=== PATIENT | female | born 1990 | race Caucasian/White ===

== ENCOUNTER 2017-09-21 03:50 | Emergency (ER) | payer OTHER ==
[2017-09-21] MEDS ORDERED: SODIUM CHLORIDE 0.9% 1000 ML INFUS.BAG IV ONE (03:58)
[2017-09-21 04:10] VITALS: BP 142/84; PULSE 95; TEMP 99.1; BMI 36.8
[2017-09-21 04:28] LABS: BASOPHIL 0.6 % (0-2.0); EOSINOPHIL 1.9 % (0-4.5); MCH 29.4 pg (25.7-33.7); MEAN CELL VOLUME 86.5 fl (80-96); MEAN PLT VOLUME 9.9 fl (7.5-11.1); NEUTROPHILS 77.8 % (42.8-82.8); PLATELET COUNT 269 K/MM3 (134-434); RDW 14.7 % (11.6-15.6); WHITE BLOOD COUNT 7.8 K/mm3 (4.0-10.0)
--- NOTE | 2017-09-21 04:40 | PDOC ---
History of Present Illness - General Stated Complaint: NAUSEAU/VOMITING Time Seen by Provider: 09/21/17 03:56 - History of Present Illness Initial Comments: 09/21/17 04:37 Patient is a 27 y.o. female with a PMH of childhood seizures (last seizure @ age 12 - previously Lamotrigine) who presents with acute onset of sharp, cramping 10/10 epigastric abdominal pain that radiates into her back with associated clear colored non-bloody emesis and 3 epsiodes of watery non-bloody diarrhea. Patient denies any subjective fevers, chills, chest pain or shortness of breath. Patient states her last PO intake was [employer] leftovers of pasta with chicken and her last menstrual period was in early August. NKDA Surgical: Cholecystectomy, C-S, Tubal Ligation Social: denies cigarettes, 1-2 alcoholic drinks monthly, denies recreational drugs PMD: None Past History - Past Medical History Allergies/Adverse Reactions: Allergies Allergy/AdvReac Type Severity Reaction Status Date / Time No Known Allergies Allergy Verified 09/21/17 04:09 Home Medications: Ambulatory Orders NK [No Known Home Medication] 09/21/17 - Suicide/Smoking/Psychosocial Hx Smoking History: Never smoked Have you smoked in the past 12 months: No Information on smoking cessation initiated: No Hx Alcohol Use: No Drug/Substance Use Hx: No Review of Systems - Review of Systems Constitutional: No: Chills, Fever Respiratory: No: Shortness of Breath Cardiac (ROS): No: Chest Pain ABD/GI: Yes: Diarrhea, Nausea, Vomiting, Abdominal cramping : No: Burning, Dysuria All Other Systems: Reviewed and Negative *Physical Exam - Vital Signs Last Vital Signs Temp Pulse Resp BP Pulse Ox 99.1 F 95 H 19 142/84 99 09/21/17 04:05 09/21/17 04:05 09/21/17 04:05 09/21/17 04:05 09/21/17 04:05 - Physical Exam General Appearance: Yes: Nourished, Obese Respiratory/Chest: positive: Lungs Clear Cardiovascular: positive: S1, S2 Gastrointestinal/Abdominal: positive: Normal Bowel Sounds, Tender (Epigastric tenderness), Soft. negative: Distended, Guarding, Rebound, Hernia, Mass Musculoskeletal: positive: CVA Tenderness (L), Vertebral Tenderness (Lumbar Sacral Tenderness) Integumentary: positive: Normal Color, Dry, Warm Neurologic: positive: Fully Oriented, Alert ED Treatment Course - LABORATORY CBC & Chemistry Diagram: 09/21/17 04:20 09/21/17 04:20 - ADDITIONAL ORDERS Additional order review: Laboratory Results 09/21/17 04:20 Urine HCG, Qual Negative 09/21/17 04:20 RBC 4.50 MCV 86.5 MCHC 34.0 RDW 14.7 MPV 9.9 Neutrophils % 77.8 Lymphocytes % 12.2 Monocytes % 7.5 Eosinophils % 1.9 Basophils % 0.6 Medical Decision Making - Medical Decision Making 09/21/17 04:47 Patient is a 27 y.o. female who presents with acute onset of abdominal cramping with associated vomiting and diarrhea. Initial DDx is for viral gastroenteritis 2/2 to food posioning vs. pancreatitis vs. diverticular disease vs. early onset appendicitis (less likely given patient's age, afebrile) PLAN: 1. CBC, CMP w/electrolyte replacement, Lipase 2. 1 L IV NS Reassess 09/21/17 04:50 Patient's CBC negative for leukocytosis and Lipase wnL -most likely diagnosis is viral gastroenteritis. Patient continues to c/o of pain --> additional 2 mg Morphine 09/21/17 06:46 Patient's pain under control. Patient discharged home with return precautions and instruction to follow up with PCP. Patient further advised to slowly advance liquid diet as tolerated. *DC/Admit/Observation/Transfer Diagnosis at time of Disposition: Viral gastroenteritis - Discharge Dispostion Disposition: HOME Condition at time of disposition: Fair - Patient Instructions Printed Discharge Instructions: DI for Vomiting -- Adult, DI for Food Poisoning Additional Instructions: Advance your diet to liquids as tolerated. Please return to the Emergency Department should you experience any worsening or concerning symptoms.
[2017-09-21] MEDS ORDERED: morphine CARPU-JECT 2 MG/1 ML DISP.SYRIN IM ONE ×2 (04:49→06:12)
[2017-09-21 04:52] LABS: ANION GAP 10 (8-16); BILIRUBIN,TOTAL 0.3 mg/dL (0.2-1.0); CALCIUM 8.3 mg/dL (8.5-10.1); CO2 24 mmol/L (21-32); CREATININE 0.7 mg/dL (0.55-1.02); GLUCOSE,RANDOM 95 mg/dL (74-106); SGOT/AST 15 U/L (15-37); SGPT/ALT 25 U/L (12-78); TOT PROT 7.9 g/dl (6.4-8.2)
[2017-09-21 04:53] LABS: ALK PHOS 68 U/L (45-117)
--- NOTE | 2017-09-21 04:54 | PDOC ---
Attending Attestation - Resident Resident Name: Tereza Velázquez - ED Attending Attestation I have performed the following: I have examined & evaluated the patient, The case was reviewed & discussed with the resident, I agree w/resident's findings & plan, Exceptions are as noted - HPI HPI: 09/21/17 04:52 abd pain which started at 10 last night. Associates it with food. - Physicial Exam PE: 09/21/17 04:53 Physical Exam General Appearance: Yes: Appropriately Dressed. No: Apparent Distress, Intoxicated HEENT: positive: EOMI, [place], Normal ENT Inspection, Normal Voice, TMs Normal, Pharynx Normal. negative: Pale Conjunctivae, Photophobia, Scleral Icterus (R), Scleral Icterus (L) Neck: positive: Trachea midline, Normal Thyroid, Supple. negative: Tender, Rigid, Carotid bruit, Stridor, Lymphadenopathy (R), Lymphadenopathy (L), Thyromegaly Respiratory/Chest: positive: Lungs Clear, Normal Breath Sounds. negative: Chest Tender, Respiratory Distress, Accessory Muscle Use, Labored Respiration, RES, Crackles, Rales, Rhonchi, Stridor, Wheezing, Dullness Cardiovascular: positive: Regular Rhythm, Regular Rate, S1, S2. negative: Edema , JVD, Murmur, Bradycardia, Tachycardia Vascular Pulses: Dorsalis-Pedis (R): 2+, Doralis-Pedis (L): 2+ Gastrointestinal/Abdominal: positive: Normal Bowel Sounds, Flat, Soft. negative : Tender, Organomegaly, Pulsatile Mass, Increased Bowel Sounds, Decreased BS, Distended, Guarding, Rebound, Hernia, Hepatomegaly, Spleenomegaly Lymphatic: negative: Adenopathy, Tenderness Musculoskeletal: positive: Normal Inspection. negative: CVA Tenderness, Decreased Range of Motion Extremity: positive: Normal Capillary Refill, Normal Inspection, Normal Range of Motion, Pelvis Stable. negative: Tender, Pedal Edema, Swelling, Erythema Integumentary: positive: Normal Color, Dry, Warm. 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 negative: EOM Palsy, Facial Droop, Sensory Deficit - Medical Decision Making 09/25/17 20:05 Pt treated and released.
[2017-09-21] MEDS ORDERED: morphine CARPU-JECT 2 MG/1 ML DISP.SYRIN ONE ×2 (05:38→06:18)
== END 2017-09-21 07:08 | disposition home or self-care (01) ==
LOC: SUPCPDRO 03:50 → JER 03:50
PROC: 3E023NZ Introduction of Analgesics, Hypnotics, Sedatives into Muscle, Percutaneous Approach (ICD-10-PCS; principal; 2017-09-21)
PROC: 3E023NZ Introduction of Analgesics, Hypnotics, Sedatives into Muscle, Percutaneous Approach (ICD-10-PCS; 2017-09-21)
DX: A08.4 Viral intestinal infection, unspecified (principal); Z86.69 Personal history of other diseases of the nervous system and sense organs
CPT/HCPCS: 36415; 80053; 83605; 83690; 83735; 84703; 85025; 99281-25